=== PATIENT | male | born 1950 | race Two or more races ===

== ENCOUNTER 2023-01-01 07:29 | Outpatient (CLI) | payer OTHER | END 2023-01-01 07:36 | disposition home or self-care (01) | LOC: RX STUDY 07:29 | PROVIDERS: ATTEND Internal Medicine Gastroenterology | DX: R10.84 Generalized abdominal pain (principal) ==

== ENCOUNTER 2023-02-27 07:16 | Outpatient (CLI) | payer OTHER | END 2023-02-27 07:17 | disposition home or self-care (01) | LOC: NUCLEAR 07:16 | PROVIDERS: ATTEND Internal Medicine Gastroenterology | DX: K31.84 Gastroparesis (principal) | CPT/HCPCS: 78264; A9541 ==